=== PATIENT | male | born 1950 | race Caucasian/White ===

== ENCOUNTER 2017-08-03 23:03 | Emergency (ER) | payer OTHER ==
[~2017-08-03] VITALS: Ht 182.9 cm; Wt 89.2 kg
[~2017-08-03 23:03] MED LIST: TYLENOL; [UNRECOGNIZED DRUG - REMARK]
[2017-08-03 23:30] VITALS: Ht 182.9 cm; Wt 89.2 kg
[2017-08-03] MEDS ORDERED: NITROGLYCERIN 2% 1 GM OINT PKT ONE (23:40)
[2017-08-04] MEDS ORDERED: NITROGLYCERIN 2% 1 GM OINT PKT TD ONE
[2017-08-04 00:30] VITALS: BP 155/84; PULSE 86; RESP 20
[2017-08-04] MEDS ORDERED: HYDROmorphONE 1 MG/ML SYG IV STA (00:55)
[2017-08-04] MEDS ORDERED: ACETAMINOPHEN 325 MG TAB PO PRN (01:00)
[2017-08-04] MEDS ORDERED: NITROGLYCERIN (SL) 0.4 MG TAB SL PRN (01:00)
[2017-08-04] MEDS ORDERED: SOD CHLORIDE 0.9% 1,000 ML IV SCH (01:00)
[2017-08-04] MEDS ORDERED: ZOLPIDEM 5 MG TAB PO PRN (01:00)
[2017-08-04] MEDS ORDERED: ONDANSETRON 4 MG INJ IV PRN (01:00)
--- NOTE | 2017-08-04 01:00 | ERD ---
ER Documentation Chief Complaint Chief Complaint HPI 67-year-old male comes in with epigastric pain rating to his chest for the past 2-3 hours. Pain is mild to moderate in intensity. Pressure-like. No exacerbating or alleviating factors. Mild nausea but no vomiting. Mild shortness of breath. No other current complaints. Patient has history of diabetes and hypercholesterolemia. No history of cardiac disease. ROS All systems reviewed and are negative except as per history of present illness. Medications Home Meds Reported Medications [Tylenol] No Conflict Check 04/11/13 [?Diabetes Med?] No Conflict Check 04/11/13 Allergies Allergies: Coded Allergies: No Known Allergy (Unverified , 07/15/14) PMhx/Soc History of Surgery: Yes (RIGHT KIDNEY SURGERY,GALLBLADDER REMOVAL) Anesthesia Reaction: No Hx Neurological Disorder: No Hx Respiratory Disorders: No Hx Cardiac Disorders: No Hx Psychiatric Problems: No Hx Miscellaneous Medical Probl: Yes (DM) Hx Alcohol Use: Yes (ON OCCASION) Hx Substance Use: Yes (METHADONE PT) Hx Tobacco Use: Yes Physical Exam Physical Exam Const: [] Head: Atraumatic Eyes: Normal Conjunctiva ENT: Normal External Ears, Nose and Mouth. Neck: Full range of motion..~ No meningismus. Resp: Clear to auscultation bilaterally Cardio: Regular rate and rhythm, no murmurs Abd: Soft, non tender, non distended. Normal bowel sounds Skin: No petechiae or rashes Back: No midline or flank tenderness Ext: No cyanosis, or edema Neur: Awake and alert Psych: Normal Mood and Affect Result Diagram: 08/03/17 2215 08/03/17 2215 Results 24 hrs Laboratory Tests Test 08/03/17 21:30 08/03/17 22:15 White Blood Count Pending 12.610^3/ul Red Blood Count Pending 5.3010^6/ul Hemoglobin Pending 15.5g/dl Hematocrit Pending 48.0% Mean Corpuscular Volume Pending 90.6fl Mean Corpuscular Hemoglobin Pending 29.2pg Mean Corpuscular Hemoglobin Concent Pending 32.3g/dl Red Cell Distribution Width Pending 13.5% Platelet Count Pending 04799^3/UL Mean Platelet Volume Pending 12.0fl Neutrophils % 66.6% Lymphocytes % 23.5% Monocytes % 7.5% Eosinophils % 1.5% Basophils % 0.4% Nucleated Red Blood Cells % 0.0/100WBC Neutrophils # 8.410^3/ul Lymphocytes # 3.010^3/ul Monocytes # 1.010^3/ul Eosinophils # 0.210^3/ul Basophils # 0.110^3/ul Nucleated Red Blood Cells # 0.010^3/ul Prothrombin Time 12.0Sec Prothrombin Time Ratio 0.9 INR International Normalized Ratio 0.89 Activated Partial Thromboplast Time 34.9Sec Sodium Level 136mmol/L Potassium Level 4.6mmol/L Chloride Level 101mmol/L Carbon Dioxide Level 22mmol/L Anion Gap 18 Blood Urea Nitrogen 19mg/dl Creatinine 1.73mg/dl Glucose Level 312mg/dl Calcium Level 9.4mg/dl Troponin I < 0.012ng/ml Lipase 324U/L Current Medications Medications (Trade) Dose Ordered Sig/Christine Route PRN Reason Start Time Stop Time Status Last Admin Dose Admin Nitroglycerin (Nitroglycerin 2% Oint) 2 inch ONCE ONCE TD 08/04/17 00:00 08/04/17 00:01 DC 08/03/17 23:46 Nitroglycerin (Nitroglycerin 2% Oint) 1 inch STK-MED ONCE .ROUTE 08/03/17 23:40 08/03/17 23:41 DC Ondansetron HCl (Zofran Inj) 4 mg Q4 PRN IV NAUSEA AND/OR VOMITING 08/04/17 01:00 UNV Acetaminophen (Tylenol Tab) 650 mg Q4 PRN PO FEVER GREATER THAN 100.6 08/04/17 01:00 UNV Zolpidem Tartrate (Ambien) 5 mg HS MAY REPEAT X 1 PRN PO INSOMNIA 08/04/17 01:00 UNV Nitroglycerin (Nitroglycerin (Sl Tab) 0.4 Mg) 1 tab [id number] PRN SL ANGINA 08/04/17 01:00 UNV Miscellaneous Information (* Miscellaneous Pharmacy Order) Discontinue current oral sulfonylur... ONCE ONCE XX 08/04/17 01:00 08/04/17 01:01 UNV Diagnostic Test (Pha) (Accu-Chek) 1 ea 02 XX 08/04/17 02:00 UNV Miscellaneous Information (* Miscellaneous Pharmacy Order) HYPOGLYCEMIA PROTOCOL w... ONCE ONCE XX 08/04/17 01:00 08/04/17 01:01 UNV Insulin Aspart (Novolog Insulin Pen) NOVOLOG *MODERATE* ALGORITHM WITH MEALS BEDTIME SC 08/04/17 08:00 UNV Miscellaneous Information Discontinue all previ... ONCE ONCE XX 08/04/17 01:00 08/04/17 01:01 UNV Sodium Chloride (NS) 1,000 ml @ 125 mls/hr Q8H IV 08/04/17 01:00 UNV Hydromorphone HCl (Dilaudid) 1 mg ONCE STAT IV 08/04/17 00:55 08/04/17 00:56 DC Procedures/MDM EKG: Rate/Rhythm: [Normal Sinus Rhythm] QRS, ST, T-waves: [No changes consistent w/ acute ischemia] Impression: [No evidence of ischemia or arrhythmia] Chest X-ray 1V Interpreted by me: Soft Tissue: No acute abnormalities Bones: No acute abnormalities Mediastinum/Cardiac Silhouette/Lungs: [No acute abnormalities] Patient's symptoms are concerning for cardiac cause will require inpatient workup and continuous monitoring. Further w/u for ischemia, arrhythmia, PE or dissection will be deferred to the inpatient team. Accepting Care Team: Current data and ongoing care discussed. Time: 1 AM Primary Provider: Dr. Walters Consulting: [[employer]] Outstanding Data: none Departure Diagnosis: Primary Impression: Chest pain Chest pain type: unspecified Qualified Code: R07.9 - Chest pain, unspecified type Condition: Serious JANNETH NYE Aug 04, 2017 01:00
[2017-08-04] MEDS ORDERED: GLUCOSE GEL 15 GRAM TUBE BUCCAL PRN (01:30)
[2017-08-04] MEDS ORDERED: DEXTROSE 50% 50 ML SYRINGE IV PRN ×2 (01:30)
[2017-08-04] MEDS ORDERED: GLUCAGON 1 MG INJ IM PRN (01:30)
[2017-08-04] MEDS ORDERED: GLUCOSE GEL 15 GRAM TUBE PO PRN ×2 (01:30)
[2017-08-04] MEDS ORDERED: ACCU-CHEK XX SCH (02:00)
[2017-08-04] MEDS ORDERED: METF-406 PO (02:37)
[2017-08-04] MEDS ORDERED: MTF1000T PO (02:37)
[2017-08-04] MEDS ORDERED: CRES10 PO (02:44)
[2017-08-04] MEDS ORDERED: TAMS0.4C2 PO (02:44)
[2017-08-04] MEDS ORDERED: ASPI-535 PO (02:46)
[2017-08-04] MEDS ORDERED: ACET-141 PO (02:46)
[2017-08-04] MEDS ORDERED: INSULIN ASPART [NOVOLOG] 3 ML PEN SC SCH (08:00)
== END 2017-08-04 02:16 | disposition left against medical advice (07) ==
LOC: E/R 23:03
DX: R07.9 Chest pain, unspecified (principal); E11.9 Type 2 diabetes mellitus without complications; Z87.891 Personal history of nicotine dependence
CPT/HCPCS: 80048; 83690; 83880; 84484; 85025; 85610; 85730; 93005; 99284; J1815; J7030